=== PATIENT | female | born 2000 | race Caucasian/White ===

== ENCOUNTER 2024-03-10 11:43 | Emergency (ER) | payer OTHER, SELFPAY ==
[2024-03-10 11:49] VITALS: BP 118/85
[2024-03-10 13:31] VITALS: BP 116/71
--- NOTE | 2024-03-10 13:32 | ED.SKININJ ---
HPI-Injury
General
Chief Complaint: Skin Surface Trauma
Source: patient
Exam Limitations: none
Time Seen by Provider: 03/10/24 12:15
Nursing documentation reviewed up to this point in time: agreed with
History of Present Illness-Injury
Initial Injury comments:
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 She denies numbness or tingling of
her fingers or hand at this time.
Past History
Past History
ED Past Medical History: None
ED Past Surgical History: Orthopedic
Social History
Tobacco: Non-smoker
Alcohol: Occasional
Personal: Single
Employment: Employed
Review of Systems
Review of Systems
Allergies reviewed?: Yes
All Other Systems: ROS reviewed and negative except as documented in HPI and ROS
Skin: Reports other (Cut palm of right hand and palmar surface of right ring finger.)
Neurological: Denies weakness or numbness
Skin Exam
Laceration
palmar surface right ring finger:
Length in cm: 4
Orientation: vertical
Type of Laceration: simple
Any active bleeding?: low grade venous oozing
Distal skin color and temperature: normal-warm & good color
Normal distal neurovascular exam: Yes
Range of motion: full
Thenar eminence of right palm:
Length in cm: 3
Orientation: horizontal
Type of Laceration: simple
Any active bleeding?: low grade venous oozing
Distal skin color and temperature: normal-warm & good color
Normal distal neurovascular exam: Yes
Range of motion: full
Phy Exam
Physical Exam
Physical Exam:
PHYSICAL EXAMINATION:
General: no apparent distress, not acutely ill
Neuro: alert and oriented.
Psychiatric: well kept. interactive and cooperative
Musculoskeletal: Moves with ease
Skin: Warm, pink.
Course
Orders/Labs/Results
Orders:
Orders
03/10/24 11:53
CR Hand - Right Min 3 Views Urgent
Comment:
Reason For Exam: laceration
Vital Signs
Initial and Last Documented VS:
Initial Vital Signs
Temp Pulse Resp BP Pulse Ox
98 F 131 18 118/85 98
03/10/24 11:49 03/10/24 11:49 03/10/24 11:49 03/10/24 11:49 03/10/24 11:49
Last Documented Vital Signs
Temp Pulse Resp BP Pulse Ox
98 F 123 16 116/71 98
03/10/24 11:49 03/10/24 13:31 03/10/24 13:31 03/10/24 13:31 03/10/24 11:49
Procedures
Laceration Closure
Thenar eminence of right palm:
Status of Wound: clean
Size of Wound in cm: 3
Description of Wound Edges: sharp
Preparation: cleaned with saline and cleaned with Betadine
Anesthesia: 1% Lidocaine
Revision/Debridement: routine- no revision
Wound exploration: explored to base- no FB and no tendon involvement
Type of Closure: single layer closure
Skin Closure Material: 4-0 nylon
Number of sutures: 9
Additional information:
Antibiotic ointment and sterile dressing applied
Palmar surface of right ring finger:
Status of Wound: clean
Size of Wound in cm: 4
Description of Wound Edges: sharp
Preparation: cleaned with saline and cleaned with Betadine
Anesthesia: 1% Lidocaine with epi and [employer]
Revision/Debridement: routine- no revision
Wound exploration: explored to base- no FB and no tendon involvement
Type of Closure: single layer closure
Skin Closure Material: 4-0 nylon
Number of sutures: 9
Additional information:
Antibiotic ointment and sterile dressing applied
MDM/Problems Addressed
MDM/Problems Addressed:
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 She denies numbness or tingling of
her fingers or hand at this time.
Wounds cleansed with Betadine soft surgical scrub and irrigated well.
There is no sign of tendon injury, all tendon function intact. She had normal sensation to touch distally at all the fingers prior to local anesthesia. All areas of hand save for the immediate area around the cut have normal sensation
Recommended tetanus immunization, patient currently declines, risk of tetanus and lethality of it discussed and she still declines
Rx for Keflex sent to her pharmacy
*Critical Care Note
Total Time (30-74mins, 75-104mins- exclusive of procedures): Not Applicable
ED Attending Note
-
Portions of this chart may have been created with voice recognition software.� Occasional wrong word or��sound alike� substitutions may have occurred due to the inherent limitations of voice recognition software.
Discharge Plan
Departure
Patient Disposition: Home (Routine Discharge)
Date of Disposition: 03/10/24
Time of Disposition: 13:39
Patient with high blood pressure during this ER visit?: No
Condition: Good
Discharge Problem:
Laceration of finger of right hand, Laceration of right palm
Instructions: Laceration Repair With Stitches (DC)
Prescriptions:
New
cephalexin 500 mg capsule
500 mg PO QID 7 Days Qty: 28 0RF
Referrals:
Your, Worker's Comp. doctor [Other] - Follow up in 2-3 days
Sangeeta Armstrong, DO [Family Provider] -
Activity Restrictions/Additional Instructions:
As we discussed, follow-up with your Worker's Comp. doctor in 2 to 3 days for a wound check and a dressing change. Keep the dressing on, clean and dry until then.
Tylenol or ibuprofen as needed for pain.
Elevating the hand slightly higher than your heart should minimize throbbing pains
I sent a prescription to your pharmacy for Keflex antibiotic. Pick it up and start it today.
Seek medical care immediately for increasing redness, pus drainage, significant swelling or red streak up the forearm which may indicate infection
Interventions
Interventions:
*Risk Screen - Suicide Last Done: 03/10/24 11:49
*General Assessment Last Done: 03/10/24 11:49
*Neglect/Abuse Screening Last Done: 03/10/24 11:49
*Nursing Disposition Last Done: 03/10/24 14:30
ED-Skin Assessment Last Done: 03/10/24 12:15
Discharge Date and Time
Discharge Date/Time: 03/10/24 14:31
Print Language: GHANAIAN
== END 2024-03-10 14:31 | disposition home or self-care (01) ==
LOC: EMR 11:43
PROVIDERS: EMERGENCY PHYSICIAN Emergency Medicine; FAMILY PHYSICIAN Family Medicine
DX: S61.411A Laceration without foreign body of right hand, initial encounter (principal); S61.214A Laceration without foreign body of right ring finger without damage to nail, initial encounter; W26.8XXA Contact with other sharp object(s), not elsewhere classified, initial encounter; Y99.0 Civilian activity done for income or pay
CPT/HCPCS: 99283; 12002; 73130